=== PATIENT | male | born 1945 | race Caucasian/White ===

== ENCOUNTER 2019-01-21 15:13 | Inpatient (IN) | payer MEDICARE, BC ==
[2019-01-21] MEDS ORDERED: SODIUM CHLORIDE 0.9% 1,000 ML IV STA (15:41)
[2019-01-21] MEDS ORDERED: PANTOPRAZOLE 40 MG/10 ML VIAL IVP STA (15:41)
--- NOTE | 2019-01-21 15:58 | ED ---
General Adult HPI - General Chief complaint: Recheck/Abnormal Lab/Rx Stated complaint: Abn labs Time Seen by Provider: 01/21/19 15:19 Source: patient, RN notes reviewed, old records reviewed (Review of lab reports from primary care physician including hemoglobin 6.5, BUN 43, creatinine approximately 1.4.) Mode of arrival: ambulatory Limitations: no limitations - History of Present Illness Initial comments: Patient is a pleasant 73-year-old male presenting to the emergency department with concerns for abnormal blood work. Blood work done yesterday through primary care physician. Patient states over the past couple of months he has been more fatigued than normal. Patient has been more fatigued especially with exertion. Patient states overall symptoms are not severe however they were enough to bring to the doctor. Patient states he is also urinating somewhat more frequently, especially at nighttime. No shortness of breath. No sweating area of weakness. No abdominal pain. No hematochezia or melena. No other areas of bleeding notified. No history of similar symptoms previously. - Related Data Allergies Allergy/AdvReac Type Severity Reaction Status Date / Time No Known Allergies Allergy Verified 01/21/19 15:18 Review of Systems ROS Statement: Those systems with pertinent positive or pertinent negative responses have been documented in the HPI. ROS Other: All systems not noted in ROS Statement are negative. 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 History of Any Multi-Drug Resistant Organisms: None Reported Past Surgical History: Orthopedic Surgery Additional Past Surgical History / Comment(s): tumor removal on left side of neck Past Psychological History: No Psychological Hx Reported Smoking Status: Former smoker Past Alcohol Use History: Occasional Past Drug Use History: None Reported General Exam Limitations: no limitations General appearance: alert, in no apparent distress Head exam: Present: normocephalic Eye exam: Present: normal appearance, PERRL ENT exam: Present: normal oropharynx Neck exam: Present: normal inspection Respiratory exam: Present: normal lung sounds bilaterally Cardiovascular Exam: Present: regular rate, normal rhythm GI/Abdominal exam: Present: soft. Absent: tenderness Rectal exam: Present: normal inspection. Absent: bloody stool Extremities exam: Present: normal inspection Neurological exam: Present: alert Psychiatric exam: Present: normal affect, normal mood Skin exam: Present: normal color Course Vital Signs 01/21/19 01/21/19 01/21/19 15:15 15:48 16:20 Temperature 98.6 F Pulse Rate 78 66 87 Respiratory 16 18 18 Rate Blood Pressure 125/76 125/77 145/87 O2 Sat by Pulse 96 96 98 Oximetry EKG Findings - EKG Comments: EKG Findings:: Sinus rhythm at 80. ID 174. QRS 94. QT 344. QTC 396. Normal axis. Normal QRS. No acute ST change. Occasional premature complexes. Sinus arrhythmia. Medical Decision Making - Medical Decision Making Patient reevaluated and resting comfortably in bed. Patient and family updated on results and plan. Case discussed with practitioner Cris, covering for Dr. Wagoner, who will admit for Dr. Meza. - Lab Data Result diagrams: 01/21/19 15:43 01/21/19 15:43 Lab Results 01/21/19 01/21/19 01/21/19 Range/Units 15:43 15:43 15:43 WBC 5.5 (3.8-10.6) k/uL RBC 3.78 L (4.30-5.90) m/uL Hgb 7.2 L (13.0-17.5) gm/dL Hct 24.8 L (39.0-53.0) % MCV 65.6 L (80.0-100.0) fL MCH 18.9 L (25.0-35.0) pg MCHC 28.9 L (31.0-37.0) g/dL RDW 17.1 H (11.5-15.5) % Plt Count 283 (150-450) k/uL Neutrophils % (Manual) 73 % Lymphocytes % (Manual) 23 % Monocytes % (Manual) 2 % Eosinophils % (Manual) 2 % Neutrophils # (Manual) 4.02 (1.3-7.7) k/uL Lymphocytes # (Manual) 1.27 (1.0-4.8) k/uL Monocytes # (Manual) 0.11 (0-1.0) k/uL Eosinophils # (Manual) 0.11 (0-0.7) k/uL Nucleated RBCs 0 (0-0) /100 WBC Manual Slide Review Performed Polychromasia Present Hypochromasia Marked Poikilocytosis Slight Poikilocytosis (manual Present Anisocytosis Slight Microcytosis Marked Target Cells Present Ovalocytes Present PT (9.0-12.0) sec INR (<1.2) APTT (22.0-30.0) sec Sodium 138 (137-145) mmol/L Potassium 4.0 (3.5-5.1) mmol/L Chloride 104 (98-107) mmol/L Carbon Dioxide 21 L (22-30) mmol/L Anion Gap 13 mmol/L BUN 42 H (9-20) mg/dL Creatinine 1.75 H (0.66-1.25) mg/dL Est GFR (CKD-EPI)AfAm 44 (>60 ml/min/1.73 sqM) Est GFR (CKD-EPI)NonAf 38 (>60 ml/min/1.73 sqM) Glucose 96 (74-99) mg/dL Calcium 9.7 (8.4-10.2) mg/dL Total Bilirubin 0.7 (0.2-1.3) mg/dL AST 33 (17-59) U/L ALT 24 (21-72) U/L Alkaline Phosphatase 38 (38-126) U/L Creatine Kinase 55 (55-170) U/L Troponin I (0.000-0.034) ng/mL Total Protein 7.3 (6.3-8.2) g/dL Albumin 4.5 (3.5-5.0) g/dL Stool Occult Blood Negative (Negative) Blood Type Blood Type Confirm Blood Type Recheck Bld Type Recheck Status Antibody Screen Spec Expiration Date 01/21/19 01/21/19 01/21/19 Range/Units 15:43 15:43 15:43 WBC (3.8-10.6) k/uL RBC (4.30-5.90) m/uL Hgb (13.0-17.5) gm/dL Hct (39.0-53.0) % MCV (80.0-100.0) fL MCH (25.0-35.0) pg MCHC (31.0-37.0) g/dL RDW (11.5-15.5) % Plt Count (150-450) k/uL Neutrophils % (Manual) % Lymphocytes % (Manual) % Monocytes % (Manual) % Eosinophils % (Manual) % Neutrophils # (Manual) (1.3-7.7) k/uL Lymphocytes # (Manual) (1.0-4.8) k/uL Monocytes # (Manual) (0-1.0) k/uL Eosinophils # (Manual) (0-0.7) k/uL Nucleated RBCs (0-0) /100 WBC Manual Slide Review Polychromasia Hypochromasia Poikilocytosis Poikilocytosis (manual Anisocytosis Microcytosis Target Cells Ovalocytes PT 9.9 (9.0-12.0) sec INR 0.9 (<1.2) APTT 22.4 (22.0-30.0) sec Sodium (137-145) mmol/L Potassium (3.5-5.1) mmol/L Chloride (98-107) mmol/L Carbon Dioxide (22-30) mmol/L Anion Gap mmol/L BUN (9-20) mg/dL Creatinine (0.66-1.25) mg/dL Est GFR (CKD-EPI)AfAm (>60 ml/min/1.73 sqM) Est GFR (CKD-EPI)NonAf (>60 ml/min/1.73 sqM) Glucose (74-99) mg/dL Calcium (8.4-10.2) mg/dL Total Bilirubin (0.2-1.3) mg/dL AST (17-59) U/L ALT (21-72) U/L Alkaline Phosphatase (38-126) U/L Creatine Kinase (55-170) U/L Troponin I <0.012 (0.000-0.034) ng/mL Total Protein (6.3-8.2) g/dL Albumin (3.5-5.0) g/dL Stool Occult Blood (Negative) Blood Type A Positive Blood Type Confirm Blood Type Recheck No Previous Record Bld Type Recheck Status CABO Indicated Antibody Screen NEGATIVE Spec Expiration Date 01/24/2019 - 9176 01/21/19 Range/Units 16:05 WBC (3.8-10.6) k/uL RBC (4.30-5.90) m/uL Hgb (13.0-17.5) gm/dL Hct (39.0-53.0) % MCV (80.0-100.0) fL MCH (25.0-35.0) pg MCHC (31.0-37.0) g/dL RDW (11.5-15.5) % Plt Count (150-450) k/uL Neutrophils % (Manual) % Lymphocytes % (Manual) % Monocytes % (Manual) % Eosinophils % (Manual) % Neutrophils # (Manual) (1.3-7.7) k/uL Lymphocytes # (Manual) (1.0-4.8) k/uL Monocytes # (Manual) (0-1.0) k/uL Eosinophils # (Manual) (0-0.7) k/uL Nucleated RBCs (0-0) /100 WBC Manual Slide Review Polychromasia Hypochromasia Poikilocytosis Poikilocytosis (manual Anisocytosis Microcytosis Target Cells Ovalocytes PT (9.0-12.0) sec INR (<1.2) APTT (22.0-30.0) sec Sodium (137-145) mmol/L Potassium (3.5-5.1) mmol/L Chloride (98-107) mmol/L Carbon Dioxide (22-30) mmol/L Anion Gap mmol/L BUN (9-20) mg/dL Creatinine (0.66-1.25) mg/dL Est GFR (CKD-EPI)AfAm (>60 ml/min/1.73 sqM) Est GFR (CKD-EPI)NonAf (>60 ml/min/1.73 sqM) Glucose (74-99) mg/dL Calcium (8.4-10.2) mg/dL Total Bilirubin (0.2-1.3) mg/dL AST (17-59) U/L ALT (21-72) U/L Alkaline Phosphatase (38-126) U/L Creatine Kinase (55-170) U/L Troponin I (0.000-0.034) ng/mL Total Protein (6.3-8.2) g/dL Albumin (3.5-5.0) g/dL Stool Occult Blood (Negative) Blood Type Blood Type Confirm A Positive Blood Type Recheck Bld Type Recheck Status Antibody Screen Spec Expiration Date Disposition Clinical Impression: Anemia, Renal insufficiency Disposition: ADMITTED IP TO THIS HOSP Is patient prescribed a controlled substance at d/c from ED?: No Referrals: Ramos Meza III, MD [Primary Care Provider] - 1-2 days Decision Time: 17:09
[2019-01-21 16:02] LABS: Anisocytosis Slight; HCT 24.8 % (39.0-53.0); HGB 7.2 gm/dL (13.0-17.5); Hypochromasia Marked; MCH 18.9 pg (25.0-35.0); MCHC 28.9 g/dL (31.0-37.0); MCV 65.6 fL (80.0-100.0); Mean Platelet Volume 7.9; Microcytosis Marked; Platelet Count 283 k/uL (150-450); Poikilocytosis Slight; RBC 3.78 m/uL (4.30-5.90); RDW 17.1 % (11.5-15.5); WBC 5.5 k/uL (3.8-10.6)
[2019-01-21 16:12] LABS: Albumin 4.5 g/dL (3.5-5.0); Calcium 9.7 mg/dL (8.4-10.2); Total Bilirubin 0.7 mg/dL (0.2-1.3); Total Protein 7.3 g/dL (6.3-8.2)
[2019-01-21 16:14] LABS: INR 0.9 (<1.2); Partial Thromboplastin Time 22.4 sec (22.0-30.0); Prothrombin Time 9.9 sec (9.0-12.0)
--- NOTE | 2019-01-21 16:22 | XR ---
EXAMINATION TYPE: XR chest 2V DATE OF EXAM: 01/21/2019 COMPARISON: NONE HISTORY: Fatigue and weakness. TECHNIQUE: Frontal and lateral views of the chest are obtained. FINDINGS: There is chronic parenchymal change without suspicious focal air space opacity, pleural ef fusion, or pneumothorax seen. The cardiac silhouette size is upper limits of normal with atheroscler otic and ectatic thoracic aorta. Retrocardiac opacity consistent with moderate size hiatal hernia Th e osseous structures are demineralized. IMPRESSION: Chronic changes without acute pulmonary process.
[2019-01-21 16:53] LABS: Eosinophils # (M) 0.11 k/uL (0-0.7); Lymphocytes # (M) 1.27 k/uL (1.0-4.8); Monocytes # (M) 0.11 k/uL (0-1.0); Neutrophils # (M) 4.02 k/uL (1.3-7.7); Neutrophils % (M) 73 %; Nucleated Red Blood Cells 0 /100 WBC (0-0); Total Cells Counted 100
[2019-01-21 16:54] LABS: Ovalocytes Present; Poikilocytosis (M) Present; Polychromasia Present; Target Cells Present
[2019-01-21] MEDS ORDERED: NALOXONE 0.4 MG/ML 1 ML VIAL IV PRN (17:09)
[2019-01-22] MEDS: SODIUM CHLORIDE 0.9% 1,000 ML IV SCH ×2 (00:07→18:01)
[2019-01-22] MEDS ORDERED: ACETAMINOPHEN TAB 325 MG TAB PO PRN (07:19)
[2019-01-22 08:00] LABS: Calcium 9.2 mg/dL (8.4-10.2); Total Bilirubin 0.8 mg/dL (0.2-1.3)
[2019-01-22 08:02] LABS: Anisocytosis Slight; Hypochromasia Marked; MCH 18.9 pg (25.0-35.0); MCHC 27.7 g/dL (31.0-37.0); MCV 68.2 fL (80.0-100.0); Mean Platelet Volume 7.5; Microcytosis Marked; Platelet Count 219 k/uL (150-450); Poikilocytosis Slight; RBC 3.37 m/uL (4.30-5.90); RDW 16.8 % (11.5-15.5); WBC 4.4 k/uL (3.8-10.6)
[2019-01-22 08:10] LABS: HGB 6.4 gm/dL (13.0-17.5)
[2019-01-22 08:54] LABS: Eosinophils # (M) 0.13 k/uL (0-0.7); Lymphocytes # (M) 1.01 k/uL (1.0-4.8); Monocytes # (M) 0.18 k/uL (0-1.0); Neutrophils # (M) 3.08 k/uL (1.3-7.7); Neutrophils % (M) 70 %; Nucleated Red Blood Cells 0 /100 WBC (0-0); Total Cells Counted 100
[2019-01-22 08:55] LABS: Ovalocytes Present; RBC Fragments Present
[2019-01-22] MEDS ORDERED: HYDROCHLOROTHIAZIDE 25 MG TAB PO SCH (09:00)
[2019-01-22] MEDS ORDERED: LOSARTAN 50 MG TAB PO SCH (09:00)
[2019-01-22] MEDS: ASPIRIN 81 MG PO SCH (09:10)
[2019-01-22] MEDS: METOPROLOL SUCCINATE (ER) 25 MG TAB.ER.24H PO SCH (09:10)
[2019-01-22] MEDS: amLODIPine 5 MG TAB PO SCH (09:10)
[2019-01-22 09:23] LABS: Albumin 3.6 g/dL (3.5-5.0); Potassium 4.5 mmol/L (3.5-5.1)
[2019-01-22] MEDS: PANTOPRAZOLE 40 MG/10 ML VIAL IV SCH (09:31)
--- NOTE | 2019-01-22 10:03 | P.NPCON ---
History of Present Illness - Reason for Consult acute renal failure - History of Present Illness Reason for consultation: Acute kidney injury History of present illness: Patient is a 73-year-old male seen in consultation for acute kidney injury. Creatinine was 1.75 on admission and is down to 1.33 today. Patient presented to the hospital due to generalized weakness. Patient states he's been getting t ired with minimal activity. He denies chest pain or shortness of breath. He does admit to good urine output. Denies any hematuria or dysuria. Denies personal or family history of renal disease. Patient's hemoglobin was 7.2 on admission and is 6.4 today. He denies any melena or hematochezia. He does admit to taking Aleve once daily for the last 1 year. Hemodynamically stable. He was taking losartan as well as hydrochlorothiazide at home which are currently held. Patient received IV fluids overnight. Scheduled to receive platelet transition today. Vital signs are stable. General: The patient appeared well nourished and normally developed. HEENT: Head exam is unremarkable. Neck is without jugular venous distension. LUNGS: Lungs are clear to auscultation and percussion. Breath sounds decreased. HEART: Rate and Rhythm are regular. First and second heart sounds normal. No murmurs, rubs or gallops. ABDOMEN: Abdominal exam reveals normal bowel sounds. Non-tender and non-distended. No evidence of peritonitis. EXTREMITITES: No clubbing, cyanosis, or edema. 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, leaky valvue History of Any Multi-Drug Resistant Organisms: None Reported Past Surgical History: Orthopedic Surgery Additional Past Surgical History / Comment(s): tumor removal on left side of neck, wrist sx, Past Psychological History: No Psychological Hx Reported Smoking Status: Former smoker Past Alcohol Use History: Occasional Past Drug Use History: None Reported - Past Family History Father Family Medical History: Myocardial Infarction ([place]) Additional Family Medical History / Comment(s): at 54 Medications and Allergies Home Medications Medication Instructions Recorded Confirmed Type Acetaminophen [Tylenol Arthritis] 650 mg PO Q6H PRN 01/21/19 01/21/19 History Aspirin EC [Ecotrin Low Dose] 81 mg PO DAILY 01/21/19 01/21/19 History Fish Oil/Dha/Epa [Fish Oil 1,200 1 cap PO DAILY 01/21/19 01/21/19 History mg Fish Oil] Flaxseed Oil 1200mg 1 cap PO DAILY 01/21/19 01/21/19 History Hydrochlorothiazide 25 mg PO DAILY 01/21/19 01/21/19 History Losartan Potassium 100 mg PO DAILY 01/21/19 01/21/19 History Metoprolol Succinate [Toprol XL] 25 mg PO DAILY 01/21/19 01/21/19 History Multivitamins, Thera [Multivitamin 1 tab PO DAILY 01/21/19 01/21/19 History (formulary)] amLODIPine [Norvasc] 5 mg PO DAILY 01/21/19 01/21/19 History Allergies Allergy/AdvReac Type Severity Reaction Status Date / Time No Known Allergies Allergy Verified 01/21/19 17:14 Physical Exam Vitals: Vital Signs Temp Pulse Pulse Resp BP BP Pulse Ox 01/22/19 07:20 98.3 F 70 17 122/78 97 01/22/19 05:37 98.0 F 70 16 99/62 98 01/21/19 21:09 97.7 F 84 16 124/66 97 01/21/19 18:18 98.2 F 122 H 20 132/82 94 L 01/21/19 17:51 98.3 F 73 18 132/89 97 01/21/19 16:20 87 18 145/87 98 01/21/19 15:48 66 18 125/77 96 01/21/19 15:15 98.6 F 78 16 125/76 96 Intake and Output 01/21/19 01/22/19 01/22/19 22:59 06:59 14:59 Intake Total 580 Output Total 126 Balance 580 -126 Intake: Intake, IV Titration 580 Amount Sodium Chloride 0.9% 1, 500 000 ml @ 100 mls/hr IV . Q10H [facility] Rx#:[id number] Sodium Chloride 0.9% 1, 80 000 ml @ 20 mls/hr IV . Q24H [facility] Rx#:[id number] Output: Post Void Residual 126 Other: Voiding Method Toilet Toilet Toilet # Voids 1 1 Weight 72.575 kg Results - Lab Results Most recent lab results Calcium 9.2 mg/dL (8.4-10.2) 01/22/19 07:24 01/22/19 07:24 01/22/19 07:24 Assessment and Plan Plan: Assessment: 1. Acute kidney injury mostly prerenal secondary to acute blood loss anemia and further worsened with the use of hydrochlorothiazide and losartan. Creatinine was 1.75 on admission and is 1.33 today. No evidence of urinary retention. 2. Acute blood loss anemia. Hemoglobin 6.4 today. 3. Benign hypertension. Controlled. Plan: I will decrease the rate of normal saline to 50 mL an hour. Transfuse 1 unit of packed red cells today. Avoid nephrotoxins, arabella NSAIDs in setting of GIB. Continue to hold hydrochlorothiazide and losartan. GI recommendations pending. Follow-up iron studies. Repeat electrolytes in the morning. Thank you for the consultation. I will continue to follow the patient with you during his hospital stay.
[2019-01-22 11:15] LABS: Appearance,Urine Clear (Clear); Bilirubin,Urine Negative (Negative); Blood,Urine Negative (Negative); Color,Urine Light Yellow; Glucose,Urine (UA) Negative (Negative); Ketones,Urine Negative (Negative); Leukocyte Esterase,Urine Negative (Negative); Nitrite,Urine Negative (Negative); Protein,Urine Negative (Negative); Specific Gravity,Urine 1.014 (1.001-1.035); Urobilinogen,Urine <2.0 mg/dL (<2.0)
--- NOTE | 2019-01-22 12:33 | P.HPIM ---
History of Present Illness This is a pleasant 73 years old male with past medical history of lymphoma of the left ear, hypertension who presents because of her low hemoglobin sent by his primary care physician to the emergency room as his hemoglobin was 6.5 with BUN 43 and creatinine 1.4 as per documentation. Patient went to see his PCP Dr. Burroughs because was feeling fatigue with decreased libido and generalized weakness for 2-3 months and eventually his competent to see his PCP Y found to be severely anemic with high creatinine and he was referred to the hospital. 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 He denies chest pain or dyspnea. No abdominal pain. No nausea vomiting. No change in urine or bowel habits. No fever. Vitas looks stable, with low normal blood pressure irrigated this morning at 99/62. Labs showing hemoglobin of 7.2, and creatinine of 1.7. EKG showing sinus rhythm at 80 BPM with no significant ST-T changes, sinus arrhythmia and PVCs with QTC of 396. Chest x-ray: No acute process, Hiatal hernia. On admission patient was started on a Protonix and normal saline at 100 mL per hour. GI and hematology team were consulted from emergency room. Review of Systems CONSTITUTIONAL: No fever, no malaise, no fatigue. HEENT: No recent visual problems or hearing problems. Denied any sore throat. CARDIOVASCULAR: No orthopnea, PND, no palpitations, no syncope. PULMONARY: No shortness of breath, no cough, no hemoptysis. GASTROINTESTINAL: No diarrhea, no nausea, no vomiting, no abdominal pain. Nor moactive bowel sounds. NEUROLOGICAL: No headaches, no weakness, no numbness. HEMATOLOGICAL: Denies any bleeding or petechiae. GENITOURINARY: Denies any burning micturition, frequency, or urgency. MUSCULOSKELETAL/RHEUMATOLOGICAL: Denies any joint pain, swelling, or any muscle pain. ENDOCRINE: Denies any polyuria or polydipsia. 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, leaky valvue History of Any Multi-Drug Resistant Organisms: None Reported Past Surgical History: Orthopedic Surgery Additional Past Surgical History / Comment(s): tumor removal on left side of neck, wrist sx, Past Psychological History: No Psychological Hx Reported Smoking Status: Former smoker Past Alcohol Use History: Occasional Past Drug Use History: None Reported - Past Family History Father Family Medical History: Myocardial Infarction ([place]) Additional Family Medical History / Comment(s): at 54 Medications and Allergies Home Medications Medication Instructions Recorded Confirmed Type Acetaminophen [Tylenol Arthritis] 650 mg PO Q6H PRN 01/21/19 01/21/19 History Aspirin EC [Ecotrin Low Dose] 81 mg PO DAILY 01/21/19 01/21/19 History Fish Oil/Dha/Epa [Fish Oil 1,200 1 cap PO DAILY 01/21/19 01/21/19 History mg Fish Oil] Flaxseed Oil 1200mg 1 cap PO DAILY 01/21/19 01/21/19 History Hydrochlorothiazide 25 mg PO DAILY 01/21/19 01/21/19 History Losartan Potassium 100 mg PO DAILY 01/21/19 01/21/19 History Metoprolol Succinate [Toprol XL] 25 mg PO DAILY 01/21/19 01/21/19 History Multivitamins, Thera [Multivitamin 1 tab PO DAILY 01/21/19 01/21/19 History (formulary)] amLODIPine [Norvasc] 5 mg PO DAILY 01/21/19 01/21/19 History Allergies Allergy/AdvReac Type Severity Reaction Status Date / Time No Known Allergies Allergy Verified 01/21/19 17:14 Physical Exam Vitals: Vital Signs Temp Pulse Pulse Resp BP BP Pulse Ox 01/22/19 05:37 98.0 F 70 16 99/62 98 01/21/19 21:09 97.7 F 84 16 124/66 97 01/21/19 18:18 98.2 F 122 H 20 132/82 94 L 01/21/19 17:51 98.3 F 73 18 132/89 97 01/21/19 16:20 87 18 145/87 98 01/21/19 15:48 66 18 125/77 96 01/21/19 15:15 98.6 F 78 16 125/76 96 Intake and Output 01/21/19 01/22/19 01/22/19 22:59 06:59 14:59 Intake Total 580 Balance 580 Intake: Intake, IV Titration 580 Amount Sodium Chloride 0.9% 1, 500 000 ml @ 100 mls/hr IV . Q10H [facility] Rx#:[id number] Sodium Chloride 0.9% 1, 80 000 ml @ 20 mls/hr IV . Q24H [facility] Rx#:[id number] Other: Voiding Method Toilet Toilet # Voids 1 1 Weight 72.575 kg GENERAL: The patient is alert and oriented x3, not in any acute distress. Well developed, well nourished. HEENT: Pupils are round and equally reacting to light. EOMI. No scleral icterus. No conjunctival pallor. Normocephalic, atraumatic. No pharyngeal erythema. No thyromegaly. CARDIOVASCULAR: S1 and S2 present. No murmurs, rubs, or gallops. PULMONARY: Chest is clear to auscultation, no wheezing or crackles. ABDOMEN: Soft, nontender, nondistended, normoactive bowel sounds. No palpable organomegaly. MUSCULOSKELETAL: No joint swelling or deformity. EXTREMITIES: No cyanosis, clubbing, or pedal edema. NEUROLOGICAL: Gross neurological examination did not reveal any focal deficits. SKIN: No rashes. No petechiae Results CBC & Chem 7: 01/22/19 07:24 01/22/19 07:24 Labs: Abnormal Lab Results - Last 24 Hours (Table) 01/21/19 01/21/19 Range/Units 15:43 15:43 RBC 3.78 L (4.30-5.90) m/uL Hgb 7.2 L (13.0-17.5) gm/dL Hct 24.8 L (39.0-53.0) % MCV 65.6 L (80.0-100.0) fL MCH 18.9 L (25.0-35.0) pg MCHC 28.9 L (31.0-37.0) g/dL RDW 17.1 H (11.5-15.5) % Carbon Dioxide 21 L (22-30) mmol/L BUN 42 H (9-20) mg/dL Creatinine 1.75 H (0.66-1.25) mg/dL Thrombosis Risk Factor Assmnt - Choose All That Apply Any of the Below Risk Factors Present?: No Each Risk Factor Represents 2 Points: Age 61-74 years Thrombosis Risk Factor Assessment Total Risk Factor Score: 2 Thrombosis Risk Factor Assessment Level: Low Risk Assessment and Plan Assessment: Acute kidney injury, mostly secondary to prerenal acute anemia, suspicious for acute blood loss anemia Generalized weakness, fatigue and decreased libido, secondary to above Hiatal hernia Hypertension History of lymphoma in the left ear Plan: This is a pleasant 73 years old male who presents with anemia and Ana, although anemia workup including iron profile, B12/folate, occult blood in stool, and reticulocyte. Also we'll continue with normal saline and follow-up renal level. Check a bladder scan. Call nephrology consult. Continue with Protonix Labs and medication were reviewed.. Continue same treatment. Continue with symptomatic treatment. Resume home medication. Monitor lytes and vitals. DVT and GI prophylaxis. Further recommendations of the clinical course of the patient DVT prophylaxis: Subcutaneous heparin in view of GI bleed,mechanical GI Prophylaxis: Protonix PT/OT: Pending Prognosis is guarded
[2019-01-22 13:06] LABS: Reticulocyte % 1.9 % (0.5-2.0)
--- NOTE | 2019-01-22 16:36 | P.CONS ---
History of Present Illness - Reason for Consult Consult date: 01/22/19 anemia Requesting physician: Solomon Mims - Chief Complaint Abnormal lab - History of Present Illness Mr. Roa is a very pleasant male patient of Dr. Jonh Meza who was being seen for progressive fatigue over few months, this was associated with shortness of breath with exertion, muscle weakness with minor tasks. On routine lab work patient was found to have a hemoglobin of 6.4 and he was directed by PCP to ER for blood transfusion and to stabilize hemoglobin. Patient denies any past history of low blood counts/anemia, he denies any kidney disease (BUN 27 creatinine 1.33). His last colonoscopy was about 2-[address] Pettit, he has a history of some polyps, nothing malignant, never had an EGD, denies any gross bleeding, fevers, chills, night sweats, dysphagia, early satiety, unintentional wt. loss, lymph node swellings, abdominal pain, distention, acute changes indigestion, acute bowel or bladder habit changes, black or bloody stool, hemorrhoids, dysuria, hematuria. Has noted decreased libido, increased nocturia. 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 He had some radiation to the area, no other f/u or work up. 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 No other personal or family history of malignancy. He eats a well balanced diet and is active. He feels he is in good health Review of Systems 14 point review of systems is negative except as stated in HPI Past Medical History Past Medical History: Cancer Additional Past Medical History / Comment(s): lymphoma in left ear lobe, leaky valvue History of Any Multi-Drug Resistant Organisms: None Reported Past Surgical History: Orthopedic Surgery Additional Past Surgical History / Comment(s): tumor removal on left side of neck, wrist sx, Past Anesthesia/Blood Transfusion Reactions: No Reported Reaction Past Psychological History: No Psychological Hx Reported Smoking Status: Former smoker Past Alcohol Use History: Occasional Past Drug Use History: None Reported - Past Family History Father Family Medical History: Myocardial Infarction (OR) Additional Family Medical History / Comment(s): at 54 Medications and Allergies Home Medications Medication Instructions Recorded Confirmed Type Acetaminophen [Tylenol Arthritis] 650 mg PO Q6H PRN 01/21/19 01/21/19 History Aspirin EC [Ecotrin Low Dose] 81 mg PO DAILY 01/21/19 01/21/19 History Fish Oil/Dha/Epa [Fish Oil 1,200 1 cap PO DAILY 01/21/19 01/21/19 History mg Fish Oil] Flaxseed Oil 1200mg 1 cap PO DAILY 01/21/19 01/21/19 History Hydrochlorothiazide 25 mg PO DAILY 01/21/19 01/21/19 History Losartan Potassium 100 mg PO DAILY 01/21/19 01/21/19 History Metoprolol Succinate [Toprol XL] 25 mg PO DAILY 01/21/19 01/21/19 History Multivitamins, Thera [Multivitamin 1 tab PO DAILY 01/21/19 01/21/19 History (formulary)] amLODIPine [Norvasc] 5 mg PO DAILY 01/21/19 01/21/19 History Allergies Allergy/AdvReac Type Severity Reaction Status Date / Time No Known Allergies Allergy Verified 01/21/19 17:14 Physical Exam Vitals: Vital Signs Temp Pulse Pulse Resp BP BP Pulse Ox 01/22/19 15:01 97 F L 69 18 126/73 96 01/22/19 12:37 66 17 129/74 98 01/22/19 12:07 64 16 141/79 95 01/22/19 11:57 98.1 F 79 16 153/80 97 01/22/19 07:20 98.3 F 70 17 122/78 97 01/22/19 05:37 98.0 F 70 16 99/62 98 01/21/19 21:09 97.7 F 84 16 124/66 97 01/21/19 18:18 98.2 F 122 H 20 132/82 94 L 01/21/19 17:51 98.3 F 73 18 132/89 97 Intake and Output 01/22/19 01/22/19 01/22/19 06:59 14:59 22:59 Intake Total 580 400 310 Output Total 126 Balance 580 274 310 Intake: Intake, IV Titration 580 400 Amount Sodium Chloride 0.9% 1, 500 000 ml @ 100 mls/hr IV . Q10H STA Rx#:[id number] Sodium Chloride 0.9% 1, 80 400 000 ml @ 50 mls/hr IV . Q20H FIGUEROA Rx#:[id number] Blood Product 0 310 Rc Pheresis 2 As3 Unit 0 310 [id number] Output: Post Void Residual 126 Other: Voiding Method Toilet Toilet Toilet # Voids 1 1 - Constitutional General appearance: average body habitus, cooperative, no acute distress - EENT Eyes: anicteric sclerae, EOMI, dentition normal ENT: hearing grossly normal, normal oropharynx - Neck Scar on the left neck Neck: no lymphadenopathy - Respiratory Respiratory: bilateral: CTA - Cardiovascular Rhythm: regular Heart sounds: normal: S1, S2 Abnormal Heart Sounds: no systolic murmur, no diastolic murmur, no rub, no S3 Gallop, no S4 Gallop, no click, no other leg Peripheral Edema: bilateral: None - Gastrointestinal General gastrointestinal: no absent bowel sounds, no decreased bowel sounds, no distended, no hepatomegaly, no hyperactive bowel sounds, normal bowel sounds, no organomegaly, no rigid, no scaphoid, soft, no splenomegaly, no tenderness, no umbilical hernia, no ventral hernia - Integumentary Integumentary: normal, normal turgor - Neurologic Neurologic: CNII-XII intact - Musculoskeletal Musculoskeletal: strength equal bilaterally - Psychiatric Psychiatric: A&O x's 3, appropriate affect, intact judgment & insight Results CBC & Chem 7: 01/22/19 07:24 01/22/19 07:24 Labs: Abnormal Lab Results - Last 24 Hours (Table) 01/21/19 01/21/19 01/22/19 Range/Units 15:43 15:43 07:24 RBC 3.78 L 3.37 L (4.30-5.90) m/uL Hgb 7.2 L 6.4 L* (13.0-17.5) gm/dL Hct 24.8 L 23.0 L (39.0-53.0) % MCV 65.6 L 68.2 L (80.0-100.0) fL MCH 18.9 L 18.9 L (25.0-35.0) pg MCHC 28.9 L 27.7 L (31.0-37.0) g/dL RDW 17.1 H 16.8 H (11.5-15.5) % BUN (9-20) mg/dL Creatinine (0.66-1.25) mg/dL Alkaline Phosphatase (38-126) U/L Total Protein (6.3-8.2) g/dL Crossmatch See Detail 01/22/19 Range/Units 07:24 RBC (4.30-5.90) m/uL Hgb (13.0-17.5) gm/dL Hct (39.0-53.0) % MCV (80.0-100.0) fL MCH (25.0-35.0) pg MCHC (31.0-37.0) g/dL RDW (11.5-15.5) % BUN 27 H (9-20) mg/dL Creatinine 1.33 H (0.66-1.25) mg/dL Alkaline Phosphatase 31 L (38-126) U/L Total Protein 6.0 L (6.3-8.2) g/dL Crossmatch Chest x-ray: report reviewed Assessment and Plan (1) Microcytic hypochromic anemia Narrative/Plan: Iron deficiency workup ordered. Dr. Pettit will be consulted as this is new for the patient. She may recommend further workup in the outpatient setting. Recommendations to follow from Hematology Current Visit: Yes Status: Acute Priority: High Code(s): D50.9 - IRON DEFICIENCY ANEMIA, UNSPECIFIED SNOMED Code(s): 61018405 (2) Renal insufficiency Narrative/Plan: Nephrology has been consulted. Could be contributing and a small way to patient's anemia Current Visit: Yes Status: Acute Priority: High Code(s): N28.9 - DISORDER OF KIDNEY AND URETER, UNSPECIFIED SNOMED Code(s): 072840366 Plan: Remote history of a single lymph node lymphoma lt posterior ear. Nothing in H&P or labs is highly suspicious for this process but, I will review the case with Hem/Onc to see if any additional workup would be appropriate.
[2019-01-22 16:53] LABS: % Iron Saturation 2.05 (15.00-50.00); Ferritin 5.2 ng/mL (22.0-322.0); Folate, Serum 22.2 ng/mL
[2019-01-22] MEDS ORDERED: PEG 3350-NA SULF,BICARB,CL/KCL 4,000 ML BOTTLE PO ONE (17:00)
--- NOTE | 2019-01-22 22:22 | CONS ---
CONSULTATION DATE OF DICTATION: 01/22/2019 REASON FOR CONSULTATION: Severe symptomatic microcytic, hypochromic anemia. HISTORY OF PRESENT ILLNESS: The patient is a 73-year-old pleasant white male who has been feeling fatigued and weak for the last two months' duration. He went to see Dr. Meza on an outpatient basis, had routine labs done, and hemoglobin was low at 7.3. He was called and was advised to go to the emergency room, and the patient was admitted yesterday night. He denies any abdominal pain. No nausea or vomiting. No rectal bleeding. No melena. He never had these symptoms in the past. His last colonoscopy was about three years ago by Dr. Trevino, which was within normal limits. PAST MEDICAL HISTORY: Significant for hypertension and lymphoma of the left earlobe diagnosed in 2004. PAST SURGICAL HISTORY: Unremarkable. MEDICATIONS AT HOME: 1. Aspirin. 2. Losartan. 3. Hydrochlorothiazide. 4. Amlodipine. 5. Toprol. 6. Multivitamin. ALLERGIES: NO KNOWN DRUG ALLERGIES. SOCIAL HISTORY: No smoking or alcohol use. FAMILY HISTORY: Unremarkable. REVIEW OF SYSTEMS: CARDIOPULMONARY: No chest pain or shortness of breath. GENITOURINARY: No dysuria or hematuria. MUSCULOSKELETAL: Unremarkable. SKIN: Unremarkable. ENDOCRINE: Unremarkable. PSYCHIATRIC: Unremarkable. NEUROLOGICAL: Unremarkable. ENT/VISION: Unremarkable. CONSTITUTIONAL: No recent weight loss. No fever, chills, night sweats. PHYSICAL EXAMINATION: Blood pressure is 126/73, pulse rate 69, temperature 97. HEENT: Examination unremarkable. Conjunctivae are pink, sclerae anicteric. Oral cavity, no lesions. NECK: No JVD or lymph node enlargement. CHEST: Clear to auscultation. HEART: Regular rate and rhythm. ABDOMEN: Soft. Bowel sounds are positive. No organomegaly. EXTREMITIES: No pedal edema. SKIN: No rashes. NEUROLOGIC: He is alert and oriented x3. No focal deficits. LABS: WBC 5.5, hemoglobin 7.2. It is down to 6.4 today. MCV is 65. Platelets are normal. Basic metabolic panel is within normal limits. BUN is 42, creatinine 1.75. ALT, AST, T-bilirubin, and alkaline phosphatase are normal. Stool occult blood was negative. IMPRESSION: 1. Severe microcytic, hypochromic anemia consistent with iron deficiency anemia, most likely related to occult gastrointestinal blood loss. Clinically the patient does not have any gastrointestinal symptoms. Last colonoscopy three years ago by Dr. Trevino was within normal limits. The patient has been taking NSAIDS on a regular basis, Advil one tablet daily for the last one year for degenerative joint disease. Most likely we are dealing with peptic ulcer disease, but other etiologies cannot be excluded. The patient is hemodynamically stable and does not have any active ongoing bleeding. 2. Essential hypertension, which is well controlled. RECOMMENDATIONS: 1. Will give him one unit of PRBC transfusion. 2. Proceed with EGD and colonoscopy tomorrow. Discussed with the patient risks, benefits, and complications of the procedure and he is agreeable to it. Thank you for this consultation. MMODL / IJN: [id number] /
[2019-01-22] MEDS ORDERED: LIDOCAINE 1% 20 ML VIAL (10MG/ML) FOR IV START INTRADERMA PRN (22:51)
[2019-01-23] MEDS: LACTATED RINGERS 1,000 ML IV SCH ×2 (00:58→22:11)
[2019-01-23 09:03] LABS: Anisocytosis Slight; Basophils # (A) 0.1 k/uL (0-0.2); Basophils % (A) 1 %; Eosinophils # (A) 0.2 k/uL (0-0.7); Eosinophils % (A) 5 %; HGB 7.7 gm/dL (13.0-17.5); Hypochromasia Marked; Lymphocytes # (A) 0.9 k/uL (1.0-4.8); Lymphocytes % (A) 22 %; MCH 19.5 pg (25.0-35.0); MCHC 28.5 g/dL (31.0-37.0); MCV 68.5 fL (80.0-100.0); Mean Platelet Volume 6.7; Microcytosis Marked; Monocytes # (A) 0.4 k/uL (0-1.0); Monocytes % (A) 9 %; Neutrophils # (A) 2.5 k/uL (1.3-7.7); Neutrophils % (A) 59 %; Platelet Count 227 k/uL (150-450); Poikilocytosis Moderate; RBC 3.94 m/uL (4.30-5.90); RDW 19.1 % (11.5-15.5); WBC 4.3 k/uL (3.8-10.6)
[2019-01-23] MEDS: METOPROLOL SUCCINATE (ER) 25 MG TAB.ER.24H PO SCH (09:04)
--- NOTE | 2019-01-23 09:17 | P.PN ---
Subjective This is a pleasant 73 years old male with past medical history of lymphoma of the left ear, hypertension who presents because of her low hemoglobin sent by his primary care physician to the emergency room as his hemoglobin was 6.5 with BUN 43 and creatinine 1.4 as per documentation. Patient went to see his PCP Dr. Burroughs because was feeling fatigue with decreased libido and generalized weakness for 2-3 months and eventually his competent to see his PCP Y found to be severely anemic with high creatinine and he was referred to the hospital. 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 He denies chest pain or dyspnea. No abdominal pain. No nausea vomiting. No change in urine or bowel habits. No fever. Vitas looks stable, with low normal blood pressure irrigated this morning at 99/62. Labs showing hemoglobin of 7.2, and creatinine of 1.7. EKG showing sinus rhythm at 80 BPM with no significant ST-T changes, sinus arrhythmia and PVCs with QTC of 396. Chest x-ray: No acute process, Hiatal hernia. On admission patient was started on a Protonix and normal saline at 100 mL per hour. GI and hematology team were consulted from emergency room. 01/23/2019 Patient feels better with weakness is improving. Vitas looks stable. His hemoglobin went up to 7.7 post blood transfusion. Risks of CBC is unremarkable. Iron study showing anemia of chronic disease, B12 is low-normal under going to replace it, folate 22.2. Patient is planned for DVT/colonoscopy today. Review of Systems CONSTITUTIONAL: No fever, no malaise, no fatigue. HEENT: No recent visual problems or hearing problems. Denied any sore throat. CARDIOVASCULAR: No orthopnea, PND, no palpitations, no syncope. PULMONARY: No shortness of breath, no cough, no hemoptysis. GASTROINTESTINAL: No diarrhea, no nausea, no vomiting, no abdominal pain. Normoactive bowel sounds. NEUROLOGICAL: No headaches, no weakness, no numbness. HEMATOLOGICAL: Denies any bleeding or petechiae. GENITOURINARY: Denies any burning micturition, frequency, or urgency. MUSCULOSKELETAL/RHEUMATOLOGICAL: Denies any joint pain, swelling, or any muscle pain. ENDOCRINE: Denies any polyuria or polydipsia. Active Medications Generic Name Dose Route Start Last Admin Trade Name Freq PRN Reason Stop Dose Admin Acetaminophen 650 mg 01/22/19 07:19 Tylenol Tab PO Q6H PRN Pain Amlodipine Besylate 5 mg 01/22/19 09:00 01/22/19 09:10 Norvasc PO 5 mg DAILY FIGUEROA Administration Aspirin 81 mg 01/22/19 09:00 01/22/19 09:10 Aspirin PO 81 mg DAILY FIGUEROA Administration Cyanocobalamin 500 mcg 01/23/19 09:15 Vitamin B-12 PO DAILY FIGUEROA Sodium Chloride 1,000 mls @ 50 mls/hr 01/21/19 17:15 01/22/19 18:01 Saline 0.9% IV 50 mls/hr .Q20H FIGUEROA Administration Lactated Ringer's 1,000 mls @ 20 mls/hr 01/22/19 23:00 01/23/19 00:58 Lactated Ringers IV 20 mls/hr .Q24H FIGUEROA Administration Lidocaine HCl 0.1 ml 01/22/19 22:51 .Xylocaine 1% Inj (10mg/Ml) For Iv Start INTRADERMA PER PROTOCOL PRN IV Start Metoprolol Succinate 25 mg 01/22/19 09:00 01/23/19 09:04 Toprol Xl PO 25 mg DAILY FIGUEORA Administration Naloxone HCl 0.2 mg 01/21/19 17:09 Narcan IV Q2M PRN Opioid Reversal Pantoprazole Sodium 40 mg 01/22/19 09:00 01/22/19 09:31 Protonix IV 40 mg DAILY FIGUEROA Administration Objective - Vital Signs Vital signs: Vital Signs Temp 98.3 F 01/23/19 04:35 Pulse 74 01/23/19 04:35 Resp 18 01/23/19 04:35 BP 92/55 01/23/19 04:35 Pulse Ox 95 01/23/19 04:35 Intake & Output 01/22/19 01/23/19 01/23/19 18:59 06:59 18:59 Intake Total 710 60 Output Total 126 Balance 584 60 Intake: Intake, IV Titration 400 60 Amount Lactated Ringers 1,000 ml 60 @ 20 mls/hr IV .Q24H FIGUEROA Rx#:[id number] Sodium Chloride 0.9% 1, 400 000 ml @ 50 mls/hr IV . Q20H FIGUEROA Rx#:[id number] Blood Product 310 Rc Pheresis 2 As3 Unit 310 [id number] Output: Post Void Residual 126 Other: Voiding Method Toilet Toilet # Voids 1 2 # Bowel Movements 5 - Exam GENERAL: The patient is alert and oriented x3, not in any acute distress. Well developed, well nourished. HEENT: Pupils are round and equally reacting to light. EOMI. No scleral icterus. No conjunctival pallor. Normocephalic, atraumatic. No pharyngeal erythema. No thyromegaly. CARDIOVASCULAR: S1 and S2 present. No murmurs, rubs, or gallops. PULMONARY: Chest is clear to auscultation, no wheezing or crackles. ABDOMEN: Soft, nontender, nondistended, normoactive bowel sounds. No palpable organomegaly. MUSCULOSKELETAL: No joint swelling or deformity. EXTREMITIES: No cyanosis, clubbing, or pedal edema. NEUROLOGICAL: Gross neurological examination did not reveal any focal deficits. SKIN: No rashes. no petechiae. - Labs CBC & Chem 7: 01/23/19 08:21 01/22/19 07:24 Labs: Abnormal Lab Results - Last 24 Hours (Table) 01/21/19 01/22/19 01/22/19 Range/Units 15:43 07:24 07:24 RBC (4.30-5.90) m/uL Hgb (13.0-17.5) gm/dL Hct (39.0-53.0) % MCV (80.0-100.0) fL MCH (25.0-35.0) pg MCHC (31.0-37.0) g/dL RDW (11.5-15.5) % Lymphocytes # (1.0-4.8) k/uL Iron 9 L (65-175) ug/dL % Saturation 2.05 L (15.00-50.00) Ferritin 5.2 L (22.0-322.0) ng/mL Total Protein 6.0 L (6.3-8.2) g/dL Crossmatch See Detail 01/23/19 Range/Units 08:21 RBC 3.94 L (4.30-5.90) m/uL Hgb 7.7 L (13.0-17.5) gm/dL Hct 27.0 L (39.0-53.0) % MCV 68.5 L (80.0-100.0) fL MCH 19.5 L (25.0-35.0) pg MCHC 28.5 L (31.0-37.0) g/dL RDW 19.1 H (11.5-15.5) % Lymphocytes # 0.9 L (1.0-4.8) k/uL Iron (65-175) ug/dL % Saturation (15.00-50.00) Ferritin (22.0-322.0) ng/mL Total Protein (6.3-8.2) g/dL Crossmatch Assessment and Plan Assessment: Acute kidney injury, mostly secondary to prerenal acute anemia, suspicious for acute blood loss anemia Generalized weakness, fatigue and decreased libido, secondary to above Hiatal hernia Hypertension History of lymphoma in the left ear Plan: This is a pleasant 73 years old male who presents with anemia and Ana, patient is going for EGD/colonoscopy today. Continue with Protonix replaced B12 Labs and medication were reviewed.. Continue same treatment. Continue with symptomatic treatment. Resume home medication. Monitor lytes and vitals. DVT and GI prophylaxis. Further recommendations of the clinical course of the patient DVT prophylaxis: Subcutaneous heparin in view of GI bleed,mechanical GI Prophylaxis: Protonix
[2019-01-23 09:31] LABS: Calcium 9.3 mg/dL (8.4-10.2); Magnesium 1.9 mg/dL (1.6-2.3); Potassium 4.3 mmol/L (3.5-5.1)
[2019-01-23] MEDS: PANTOPRAZOLE 40 MG/10 ML VIAL IV SCH (09:43)
--- NOTE | 2019-01-23 10:20 | P.PN ---
Subjective Patient is seen in follow-up for acute kidney injury. Renal function is improving. Creatinine 1.2 today. No active bleeding. Scheduled for EGD and colonoscopy today. Urine output has been good. Vital signs are stable. General: The patient appeared well nourished and normally developed. HEENT: Head exam is unremarkable. Neck is without jugular venous distension. LUNGS: Lungs are clear to auscultation and percussion. Breath sounds decreased. HEART: Rate and Rhythm are regular. First and second heart sounds normal. No murmurs, rubs or gallops. ABDOMEN: Abdominal exam reveals normal bowel sounds. Non-tender and non- distended. No evidence of peritonitis. EXTREMITITES: No clubbing, cyanosis, or edema. Objective - Vital Signs Vital signs: Vital Signs Temp 98.3 F 01/23/19 04:35 Pulse 74 01/23/19 04:35 Resp 18 01/23/19 04:35 BP 92/55 01/23/19 04:35 Pulse Ox 95 01/23/19 04:35 Intake & Output 01/22/19 01/23/19 01/23/19 18:59 06:59 18:59 Intake Total 710 60 Output Total 126 Balance 584 60 Intake: Intake, IV Titration 400 60 Amount Lactated Ringers 1,000 ml 60 @ 20 mls/hr IV .Q24H FIGUEROA Rx#:[id number] Sodium Chloride 0.9% 1, 400 000 ml @ 50 mls/hr IV . Q20H FIGUEROA Rx#:[id number] Blood Product 310 Rc Pheresis 2 As3 Unit 310 [id number] Output: Post Void Residual 126 Other: Voiding Method Toilet Toilet Toilet # Voids 1 2 # Bowel Movements 5 - Labs CBC & Chem 7: 01/23/19 08:21 01/23/19 08:21 Labs: Abnormal Lab Results - Last 24 Hours (Table) 01/21/19 01/22/19 01/23/19 Range/Units 15:43 07:24 08:21 RBC 3.94 L (4.30-5.90) m/uL Hgb 7.7 L (13.0-17.5) gm/dL Hct 27.0 L (39.0-53.0) % MCV 68.5 L (80.0-100.0) fL MCH 19.5 L (25.0-35.0) pg MCHC 28.5 L (31.0-37.0) g/dL RDW 19.1 H (11.5-15.5) % Lymphocytes # 0.9 L (1.0-4.8) k/uL Iron 9 L (65-175) ug/dL % Saturation 2.05 L (15.00-50.00) Ferritin 5.2 L (22.0-322.0) ng/mL Crossmatch See Detail Assessment and Plan Plan: Assessment: 1. Acute kidney injury mostly prerenal secondary to acute blood loss anemia and further worsened with the use of hydrochlorothiazide and losartan. Creatinine was 1.75 on admission and is 1.22 today. No evidence of urinary retention. UA is benign. 2. Acute blood loss anemia. Status post blood transfusion. Scheduled for EGD and colonoscopy today. Severe iron deficiency noted. 3. Benign hypertension. Blood pressure on the lower side this morning. Plan: Maintain normal saline at 50 mL an hour. Avoid nephrotoxins, arabella NSAIDs in setting of GIB. Continue to hold hydrochlorothiazide and losartan. Hold amlodipine for systolic blood pressure less than 120. IV iron 3 doses. First dose today. Repeat electrolytes in the morning.
[2019-01-23] MEDS ORDERED: SODIUM FERRIC GLUCONAT-SUCROSE 125 MG in SODIUM CHLORIDE 0.9% 100 ML IVPB SCH (10:30)
[2019-01-23] MEDS ORDERED: LIDOCAINE 1% INJ 10MG/ML (20 ML MDV) ONE (13:47)
[2019-01-23] MEDS ORDERED: PROPOFOL 10 MG/ML 20 ML VIAL IV ONE (13:47)
[2019-01-23] MEDS ORDERED: IV FLUID CONTINUATION 1,000 ML IV ONE (13:48)
--- NOTE | 2019-01-23 14:19 | P.PCN ---
Date of Procedure: 01/23/19 Procedure(s) Performed: Brief history: Patient is a pleasant 73-year-old white male, scheduled for an elective upper endoscopy as well as colonoscopy as a part of evaluation of iron deficiency anemia. He denies any GI symptoms. His been taking Advil for arthritis for the last 1 year duration. Procedure performed: Esophagogastroduodenoscopy with biopsy Colonoscopy Preoperative diagnosis: Iron deficiency anemia Anesthesia: MAC Procedure: After informed consent was obtained from the patient was brought into the endoscopy unit and IV sedation was administered by anesthesia under continuous monitoring. Initially upper endoscopy was done. The Olympus GF 160 video endoscope was inserted inserted into the mouth and esophagus intubated without any difficulty and was gradually advanced into the stomach and duodenum and carefully examined. The bulb and second part of the duodenum appeared normal. The scope was then withdrawn into the stomach adequately insufflated with air and upon careful examination the antrum had multiple scattered erosions consistent with NSAID-induced gastritis and biopsies were done from this area. The body, cardia and fundus appeared normal. The scope was then withdrawn into the esophagus. There was a moderate size hiatal hernia noted. The GE junction was located at 37 cm to the incisors. Multiple Franco erosions noted at the diaphragmatic hiatus. The GE junction appeared regular with no erythema erosions or ulcerations. Rest of the esophagus appeared normal. Patient tolerated the procedure well. At this time the patient continued to remain sedation. Initial digital rectal examination was normal. Olympus CF 160 video colonoscope was then inserted into the rectum and gradually advanced to the sigmoid colon and further advancement was not possible because of acute relation this area. Scope was removed and a pediatric colonoscopy was then introduced into the rectum and gradually advanced into the cecum without any difficulty. Careful examination was performed as the scope was gradually being withdrawn. The prep was excellent. The cecum, ascending colon, transverse colon, descending colon, sigmoid colon and rectum appeared normal. Retroflexion was performed in the rectum and no lesions were noted. Patient tolerated the procedure well. Impression: 1. Upper endoscopy revealed antral erosive gastritis, moderate size hiatal hernia and multiple Franco erosions 2. Colonoscopy revealed scattered sigmoid diverticulosis but no evidence of colorectal neoplasia Recommendations: Findings of this examination were discussed with the patient as well as his family. He was advised to follow with the biopsy results. He will avoid NSAIDs. He'll be started on Protonix 40 mg daily and iron supplements. Monitor CBC on a monthly basis.
[2019-01-23] MEDS: CYANOCOBALAMIN 500 MCG TAB PO SCH (14:49)
[2019-01-23] MEDS: SODIUM CHLORIDE 0.9% 1,000 ML IV SCH (14:49)
[2019-01-23] MEDS: ASPIRIN 81 MG PO SCH (14:49)
[2019-01-23] MEDS: amLODIPine 5 MG TAB PO SCH (14:52)
[2019-01-23 16:17] LABS: Protein, Total 5.6 g/dL (6.2-8.2)
[2019-01-23 17:10] VITALS: RESP 16
[2019-01-23] MEDS: FERROUS SULFATE 325 MG TAB PO SCH (19:04)
[2019-01-24 05:40] VITALS: BP 117/69; PULSE 70; TEMP 98.4
[2019-01-24 06:48] LABS: Anisocytosis Slight; Basophils % (A) 0 %; Eosinophils # (A) 0.3 k/uL (0-0.7); Eosinophils % (A) 5 %; HCT 26.5 % (39.0-53.0); HGB 7.6 gm/dL (13.0-17.5); Hypochromasia Marked; Lymphocytes # (A) 1.2 k/uL (1.0-4.8); Lymphocytes % (A) 22 %; MCHC 28.6 g/dL (31.0-37.0); MCV 69.7 fL (80.0-100.0); Mean Platelet Volume 6.3; Microcytosis Marked; Monocytes # (A) 0.5 k/uL (0-1.0); Monocytes % (A) 9 %; Neutrophils # (A) 3.2 k/uL (1.3-7.7); Neutrophils % (A) 59 %; Platelet Count 218 k/uL (150-450); Poikilocytosis Moderate; RDW 19.5 % (11.5-15.5); WBC 5.4 k/uL (3.8-10.6)
[2019-01-24 07:02] LABS: Calcium 9.3 mg/dL (8.4-10.2); Magnesium 1.9 mg/dL (1.6-2.3); Potassium 4.6 mmol/L (3.5-5.1)
--- NOTE | 2019-01-24 09:22 | P.PN ---
Subjective Patient is seen in follow-up for acute kidney injury. Renal function is stable. Creatinine 1.25 today. No active bleeding. Status post EGD and colonoscopy yesterday. Urine output has been good. Eager to go home. Vital signs are stable. General: The patient appeared well nourished and normally developed. HEENT: Head exam is unremarkable. Neck is without jugular venous distension. LUNGS: Lungs are clear to auscultation and percussion. Breath sounds decreased. HEART: Rate and Rhythm are regular. First and second heart sounds normal. No m urmurs, rubs or gallops. ABDOMEN: Abdominal exam reveals normal bowel sounds. Non-tender and non-di stended. No evidence of peritonitis. EXTREMITITES: No clubbing, cyanosis, or edema. Objective - Vital Signs Vital signs: Vital Signs Temp 98.4 F 01/24/19 05:00 Pulse 70 01/24/19 05:00 Resp 16 01/24/19 05:00 BP 117/69 01/24/19 05:00 Pulse Ox 97 01/24/19 05:00 Intake & Output 01/23/19 01/24/19 01/24/19 18:59 06:59 18:59 Intake Total 950 1280 Balance 950 1280 Intake: IV 200 Intake, IV Titration 650 80 Amount Lactated Ringers 1,000 ml 650 80 @ 20 mls/hr IV .Q24H FIGUEROA Rx#:[id number] Oral 100 1200 Other: Voiding Method Toilet Toilet # Voids 2 3 - Labs CBC & Chem 7: 01/24/19 05:45 01/24/19 05:45 Labs: Abnormal Lab Results - Last 24 Hours (Table) 01/21/19 01/23/19 01/24/19 Range/Units 15:43 08:21 05:45 RBC 3.80 L (4.30-5.90) m/uL Hgb 7.6 L (13.0-17.5) gm/dL Hct 26.5 L (39.0-53.0) % MCV 69.7 L (80.0-100.0) fL MCH 20.0 L (25.0-35.0) pg MCHC 28.6 L (31.0-37.0) g/dL RDW 19.5 H (11.5-15.5) % Chloride (98-107) mmol/L Erythropoietin 250.89 H (2.00-30.00) mIU/mL Total Protein (PEP) 5.6 L (6.2-8.2) g/dL 01/24/19 Range/Units 05:45 RBC (4.30-5.90) m/uL Hgb (13.0-17.5) gm/dL Hct (39.0-53.0) % MCV (80.0-100.0) fL MCH (25.0-35.0) pg MCHC (31.0-37.0) g/dL RDW (11.5-15.5) % Chloride 108 H (98-107) mmol/L Erythropoietin (2.00-30.00) mIU/mL Total Protein (PEP) (6.2-8.2) g/dL Assessment and Plan Plan: Assessment: 1. Acute kidney injury mostly prerenal secondary to acute blood loss anemia and further worsened with the use of hydrochlorothiazide and losartan. Creatinine was 1.75 on admission and is stable at 1.25 today. No evidence of urinary retention. UA is benign. 2. Acute blood loss anemia. Status post blood transfusion. EGD and colonoscopy this admission revealed erosive gastritis and sigmoid diverticulosis.. Severe iron deficiency noted. 3. Benign hypertension. Blood pressure on the lower side this morning. Plan: Hep-Lock IV fluids. Avoid nephrotoxins, arabella NSAIDs in setting of GIB. Continue to hold hydrochlorothiazide and losartan. Hold amlodipine for systolic blood pressure less than 120. IV iron 3 doses. Second dose today. Anticipate discharge soon. Follow up outpatient in the next 2-3 weeks.
[2019-01-24] MEDS: amLODIPine 5 MG TAB PO SCH (09:27)
[2019-01-24] MEDS: ASPIRIN 81 MG PO SCH (09:27)
[2019-01-24] MEDS: PANTOPRAZOLE 40 MG/10 ML VIAL IV SCH (09:27)
[2019-01-24] MEDS: FERROUS SULFATE 325 MG TAB PO SCH (09:27)
[2019-01-24] MEDS: METOPROLOL SUCCINATE (ER) 25 MG TAB.ER.24H PO SCH (09:28)
[2019-01-24] MEDS: CYANOCOBALAMIN 500 MCG TAB PO SCH (09:28)
--- NOTE | 2019-01-24 11:20 | PN ---
PROGRESS NOTE DATE OF SERVICE: 01/24/2019 Patient is a 73-year-old white male admitted to hospital with severe symptomatic anemia, requiring EGD, colonoscopy that was done yesterday. Upper endoscopy revealed a moderate-sized hiatal hernia with Franco erosions and antral erosive gastritis. Colonoscopy revealed diverticulosis. Patient is on Protonix 40 mg daily. He denies any complaints today. PHYSICAL EXAMINATION: He appears comfortable, in no apparent distress. Vital signs are stable. Blood pressure is 111/69, pulse is 70, temperature 98.4. HEENT: Examination unremarkable. Conjunctivae are pink. Sclerae nonicteric. Oral cavity no lesions. NECK: No JVD or lymph node enlargement. CHEST: Clear to auscultation. HEART: Regular rate and rhythm. ABDOMEN: Soft. Bowel sounds are positive. No organomegaly. EXTREMITIES: No pedal edema. SKIN: No rashes. NEURO: Alert and oriented x3. No focal deficits. LABS: WBC 5.4, hemoglobin 7.6, platelets are 218. Basic metabolic panel is within normal limits. IMPRESSION: 1. Microcytic hypochromic anemia secondary to iron deficiency from upper gastrointestinal bleed, status post EGD and colonoscopy yesterday that revealed moderate-size hiatal hernia with Franco erosions and antral erosive gastritis. 2. Colonoscopy showed diverticulosis. Patient doing well and asymptomatic. RECOMMENDATIONS: 1. Iron supplements twice daily. 2. Protonix 40 mg daily. 3. Avoid NSAIDs. 4. He can be discharged home with outpatient followup as needed. Thank you for this consultation. MMODL / IJN: [id number] /
--- NOTE | 2019-01-24 11:23 | P.DS ---
Providers Date of admission: 01/22/19 13:48 Attending physician: Gina Wagoner Consults: 01/21/19 17:10 Consult Physician Urgent Consulting Provider: Brad Diaz Consult Reason/Comments: Anemia Do you want consulting provider notified?: Yes Consult Physician Urgent Consulting Provider: Lolly Mcclain Consult Reason/Comments: Anemia Do you want consulting provider notified?: Yes 01/22/19 07:20 Consult Physician Urgent Consulting Provider: Jose Baxter Consult Reason/Comments: renal failure Do you want consulting provider notified?: Yes [facility]: 73 years [facility] male with past medical history of lymphoma of the left ear, hypertension who presents because of her low hemoglobin sent by his primary care physician to the emergency room as his hemoglobin was 6.5 with BUN 43 and creatinine 1.4 as per documentation. Patient went to see his PCP Dr. Burroughs because was feeling fatigue with decreased libido and generalized weakness for 2-3 months and eventually his competent to see his PCP Y found to be severely anemic with high creatinine and he was referred to the hospital. 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 He denies chest pain or dyspnea. No abdominal pain. No nausea vomiting. No change in urine or bowel habits. No fever. Vitas looks stable, with low normal blood pressure irrigated this morning at 99/62. Labs showing hemoglobin of 7.2, and creatinine of 1.7. EKG showing sinus rhythm at 80 BPM with no significant ST-T changes, sinus arrhythmia and PVCs with QTC of 396. Chest x-ray: No acute process, Hiatal hernia. On admission patient was started on a Protonix and normal saline at 100 mL per hour. GI and hematology team were consulted from emergency room. 01/23/2019 Patient feels better with weakness is improving. Vitas looks stable. His hemoglobin went up to 7.7 post blood transfusion. Risks of CBC is unremarkable. Iron study showing anemia of chronic disease, B12 is low-normal under going to replace it, folate 22.2. Patient is planned for DVT/colonoscopy today. 01/24/2019 Patient has erosive antral gastritis, will be discharged on Protonix for a month . PHYSICAL EXAMINATION: GENERAL: The patient is alert and oriented x3, not in any acute distress. Well developed, well nourished. HEENT: Pupils are round and equally reacting to light. EOMI. No scleral icterus. No conjunctival pallor. Normocephalic, atraumatic. No pharyngeal erythema. No thyromegaly. CARDIOVASCULAR: S1 and S2 present. No murmurs, rubs, or gallops. PULMONARY: Chest is clear to auscultation, no wheezing or crackles. ABDOMEN: Soft, nontender, nondistended, normoactive bowel sounds. No palpable organomegaly. MUSCULOSKELETAL: No joint swelling or deformity. EXTREMITIES: No cyanosis, clubbing, or pedal edema. NEUROLOGICAL: Gross neurological examination did not reveal any focal deficits. SKIN: No rashes. Possible chronic medical problems and hospitalization course please refer to dictation from Dr. dickson from yesterday Patient Condition at Discharge: Good Plan - Discharge Summary Discharge Rx Participant: No New Discharge Prescriptions: New Pantoprazole Sodium [Protonix] 40 mg PO DAILY #30 tablet. Cyanocobalamin [Vitamin B-12] 500 mcg PO DAILY #30 tab Ferrous Sulfate [Iron (65 MG Elemental)] 325 mg PO BID-W/MEALS #60 tab Continue Multivitamins, Thera [Multivitamin (formulary)] 1 tab PO DAILY Metoprolol Succinate [Toprol XL] 25 mg PO DAILY Flaxseed Oil 1200mg 1 cap PO DAILY Fish Oil/Dha/Epa [Fish Oil 1,200 mg Fish Oil] 1 cap PO DAILY Aspirin EC [Ecotrin Low Dose] 81 mg PO DAILY Acetaminophen [Tylenol Arthritis] 650 mg PO Q6H PRN PRN Reason: Pain Changed amLODIPine [Norvasc] 2.5 mg PO DAILY #0 Discontinued Losartan Potassium 100 mg PO DAILY Hydrochlorothiazide 25 mg PO DAILY Discharge Medication List Acetaminophen [Tylenol Arthritis] 650 mg PO Q6H PRN 01/21/19 [History] Aspirin EC [Ecotrin Low Dose] 81 mg PO DAILY 01/21/19 [History] Fish Oil/Dha/Epa [Fish Oil 1,200 mg Fish Oil] 1 cap PO DAILY 01/21/19 [History] Flaxseed Oil 1200mg 1 cap PO DAILY 01/21/19 [History] Metoprolol Succinate [Toprol XL] 25 mg PO DAILY 01/21/19 [History] Multivitamins, Thera [Multivitamin (formulary)] 1 tab PO DAILY 01/21/19 [History] Cyanocobalamin [Vitamin B-12] 500 mcg PO DAILY #30 tab 01/23/19 [Rx] Ferrous Sulfate [Iron (65 MG Elemental)] 325 mg PO BID-W/MEALS #60 tab 01/23/19 [Rx] Pantoprazole Sodium [Protonix] 40 mg PO DAILY #30 tablet.dr 01/23/19 [Rx] amLODIPine [Norvasc] 2.5 mg PO DAILY #0 01/24/19 [Rx] Follow up Appointment(s)/Referral(s): Ramos Meza III, MD [Primary Care Provider] - 01/26/19 1:00 pm Lolly Mcclain MD [STAFF PHYSICIAN] - 02/09/19 2:00 pm Discharge Disposition: HOME SELF-CARE
[2019-01-24 11:47] LABS: Free Kappa Lt Chain Qnt, Serum 1.25 mg/dL (0.33-1.94)
[2019-01-26 13:12] LABS: Albumin 3.55 g/dL (3.80-4.90); Gamma Globulin 0.55 g/dL (0.70-1.50)
== END 2019-01-24 10:03 | disposition home or self-care (01) | DRG 378 ==
LOC: EC 15:13 → 3NMEDONC 17:10 → OBSVTOIN 01-22 13:48 → 3NMEDONC 01-22 16:39
PROVIDERS: ADMIT Hospitalist; ATTEND Hospitalist
PROC: 30233N1 Transfusion of Nonautologous Red Blood Cells into Peripheral Vein, Percutaneous Approach (ICD-10-PCS; 2019-01-22)
PROC: 0DJD8ZZ Inspection of Lower Intestinal Tract, Via Natural or Artificial Opening Endoscopic (ICD-10-PCS; principal; 2019-01-23 07:30)
PROC: 0DB78ZX Excision of Stomach, Pylorus, Via Natural or Artificial Opening Endoscopic, Diagnostic (ICD-10-PCS; principal; 2019-01-23 07:30)
DX: K29.01 Acute gastritis with bleeding (principal); D62 Acute posthemorrhagic anemia; N17.9 Acute kidney failure, unspecified; D63.8 Anemia in other chronic diseases classified elsewhere; I10 Essential (primary) hypertension; K44.9 Diaphragmatic hernia without obstruction or gangrene; K57.30 Diverticulosis of large intestine without perforation or abscess without bleeding; M19.90 Unspecified osteoarthritis, unspecified site; Z79.82 Long term (current) use of aspirin; Z79.899 Other long term (current) drug therapy; Z82.49 Family history of ischemic heart disease and other diseases of the circulatory system; Z85.72 Personal history of non-Hodgkin lymphomas; Z87.891 Personal history of nicotine dependence
CPT/HCPCS: 36415; 43239; 45378; 71046; 80048; 80053; 81003; 82272; 82550; 82607; 82668; 82728; 82746; 83540; 83550; 83735; 83883; 83921; 84165; 84484; 85025; 85045; 85610; 85730; 86334; 86850; 86900; 86901; 86920; 88305; 93005; 96361; 96374; 99285

== ENCOUNTER → 2020-08-10 | Outpatient (CLI) | payer BC, MEDICARE ==
--- NOTE | 2020-08-10 21:06 | CONS ---
CONSULTATION DATE OF SERVICE: 08/10/2020 74-year-old gentleman who has been evaluated in Sleep Center for possible obstructive sleep apnea-hypopnea syndrome. HISTORY OF PRESENT ILLNESS/SLEEP WAKE EVALUATION: SLEEP SCHEDULE: Patient's usual sleep schedule from 9 p.m. to 6 a.m. on weekdays and from 9 p.m. to 7:30 a.m. FALLING ASLEEP: No problems with falling asleep, although patient has TV set in bedroom. DURING SLEEP: He sleeps on the stomach position with loud snoring according to his and possible episodes of stopped breathing during sleep. He wakes up from sleep times new nocturia. No history of hypnagogic hallucinations, sleep paralysis or cataplexy. [place] Sleepiness Scale is 0. DURING THE DAY/SLEEP WAKE EVALUATION: The patient does not take any naps. No history of hypnagogic hallucinations, sleep paralysis or cataplexy. PAST MEDICAL HISTORY: Positive for cardiac arrhythmia, hypertension, iron deficiency anemia. PAST SURGICAL HISTORY: Carotid endarterectomy on the left side. Meniscus surgery on the right side. MEDICATIONS: Pantoprazole 40 mg once a day, metoprolol 25 mg once a day, Losartan 100 mg once a day, amlodipine 5 mg once a day, hydrochlorothiazide 25 mg once a day. Ferrous sulfate 325 mg once a day, vitamins, fish oil, flaxseed supplements. FAMILY HISTORY: Heart problems. REVIEW OF SYSTEMS: Snoring, multiple awakenings from sleep. PHYSICAL EXAMINATION: GENERAL: gentleman without distress. BP 145/88, HR 73, RR 15, height 5 feet 5 inches, weight 158.8, temperature 97.0, oxygen saturation at room air 98%. BMI 30.3. HEENT: PERRLA, EOMI. Evaluation of oropharynx showed tongue protrudes midline. Extremely low position of soft palate. Mallampati 4. Neck 15 inches in circumference. Neck: Supple, no JVD. Thyroid is not palpable. LUNGS: Clear to percussion and to auscultation. Good air exchange. No wheezing or rhonchi. HEART: S1, S2 regular. No murmurs, gallops, or rubs. ABDOMEN: Soft and nontender. Bowel sounds are present. No organomegaly appreciated. EXTREMITIES: No clubbing or cyanosis. DEMONSTRATOR SALES: Awake, alert, and oriented X3. Cranial nerves 2 to 7 intact. There is no fasciculation or atrophy. noted. No focal deficits observed. IMPRESSION: 1. Loud snoring, multiple awakenings from sleep with nocturia. Extremely low position of soft palate. Mallampati 4. Obstructive sleep apnea-hypopnea syndrome. 2. Mild obesity BMI 30.3. 3. History of cardiac arrhythmia with cardiac pauses according to patient. 4. Hypertension. 5. History of iron deficiency anemia, shock secondary to lower gastrointestinal bleed. 6. Status post carotid endarterectomy on the left side. 7. Status post right knee meniscus surgery. PLAN: 1. Home sleep apnea test for checking breathing during the sleep. 2. CPAP/BiPAP titration if sleep study confirms obstructive sleep apnea-hypopnea syndrome. 3. Preferable position during sleep on the side. 4. No driving if patient feels any sleepiness. 5. I will see patient for follow up visit to explain results of testing and following plan. Peter Roa MD, PhD, FAASM Diplomat of [place] [employer] [place] [employer] Plant Chief of [facility] [place] MMODL / IJN: [id number] /
== END ==
LOC: SLEEP 14:29
PROVIDERS: ATTEND Internal Medicine Critical Care Medicine
DX: G47.33 Obstructive sleep apnea (adult) (pediatric) (principal); R35.1 Nocturia; E66.9 Obesity, unspecified; D50.9 Iron deficiency anemia, unspecified; I10 Essential (primary) hypertension; R57.9 Shock, unspecified; Z98.890 Other specified postprocedural states; Z98.62 Peripheral vascular angioplasty status; Z79.899 Other long term (current) drug therapy; Z68.30 Body mass index [BMI] 30.0-30.9, adult; Z86.79 Personal history of other diseases of the circulatory system; Z87.891 Personal history of nicotine dependence
CPT/HCPCS: 99211

== ENCOUNTER 2020-09-22 11:40 | Day surgery (SDC) | payer MEDICARE ==
[2020-09-20 16:06] VITALS: BMI 23.1
[~2020-09-22 11:40] MED LIST: ceFAZolin 1 GM in SODIUM CHLORIDE 0.9% 250 ML IRRIGATION PRN
[2020-09-22] MEDS ORDERED: SODIUM CHLORIDE 0.9% 500 ML 500 ML IV ONE (12:18)
[2020-09-22 12:22] LABS: Basophils % (A) 0 %; Eosinophils # (A) 0.2 k/uL (0-0.7); Eosinophils % (A) 1 %; HCT 44.8 % (39.0-53.0); HGB 14.5 gm/dL (13.0-17.5); Lymphocytes % (A) 9 %; MCH 30.5 pg (25.0-35.0); MCHC 32.3 g/dL (31.0-37.0); MCV 94.3 fL (80.0-100.0); Mean Platelet Volume 8.2; Monocytes # (A) 0.6 k/uL (0-1.0); Monocytes % (A) 6 %; Neutrophils # (A) 9.3 k/uL (1.3-7.7); Neutrophils % (A) 82 %; Platelet Count 278 k/uL (150-450); RBC 4.75 m/uL (4.30-5.90); RDW 13.3 % (11.5-15.5); WBC 11.3 k/uL (3.8-10.6)
[2020-09-22 12:41] LABS: African American GFR (CKD) >90 (>60 ml/min/1.73 sqM); Anion Gap 9 mmol/L; Blood Urea Nitrogen 27 mg/dL (9-20); Calcium 9.9 mg/dL (8.4-10.2); Carbon Dioxide 23 mmol/L (22-30); Chloride 101 mmol/L (98-107); Glucose 103 mg/dL (74-99); Non-African American GFR(CKD) 85 (>60 ml/min/1.73 sqM); Sodium 133 mmol/L (137-145)
[2020-09-22 12:52] LABS: Potassium 4.2 mmol/L (3.5-5.1)
[2020-09-22] MEDS ORDERED: LIDOCAINE 1% INJ 10MG/ML (20 ML MDV) ONE ×2 (18:05)
[2020-09-22] MEDS ORDERED: IOPAMIDOL-250 50ML BTL IV ONE (18:21)
[2020-09-22] MEDS ORDERED: fentaNYL (PF) 50 MCG/ML 2 ML AMP ONE (18:23)
[2020-09-22] MEDS ORDERED: MIDAZOLAM 2 MG/2 ML VIAL IV ONE ×2 (18:28→18:52)
[2020-09-22] MEDS: MIDAZOLAM 2 MG/2 ML VIAL IV ONE ×2 (18:28→18:36)
[2020-09-22] MEDS: fentaNYL (PF) 50 MCG/ML 2 ML AMP IV ONE ×2 (18:34→18:40)
[2020-09-22] MEDS ORDERED: LIDOCAINE 1% INJ 10MG/ML (20 ML MDV) SQ ONE ×3 (18:42→19:05)
[2020-09-22] MEDS ORDERED: SODIUM CHLORIDE 0.9% 250 ML IV ONE (19:00)
[2020-09-22] MEDS ORDERED: ACETAMINOPHEN IV (For NPO) 1,000 MG in EMPTY BAG 1 BAG IVPB ONE (19:47)
[2020-09-22] MEDS ORDERED: ACETAMINOPHEN TAB 325 MG TAB PO PRN (19:47)
--- NOTE | 2020-09-22 20:07 | P.EPPROC ---
- EP Procedure Note Electrophysiology Procedure Note: Left upper extremity venogram 10 mL IV dye injected in the left arm Patent left axillary and left subclavian venous system Plan Proceed with dual-chamber pacemaker implantation
[2020-09-22] MEDS: SODIUM CHLORIDE 0.9% 1,000 ML IV SCH ×2 (20:21)
--- NOTE | 2020-09-22 20:37 | PCN ---
PROCEDURE NOTE Mr. Armstrong is a 74-year-old male patient who has paroxysmal AV block with pauses up to 11 seconds. He was brought in for dual-chamber pacemaker implantation. He also has a history of paroxysmal atrial fibrillation. Patient was brought to the EP lab in a fasting state. Written informed consent was obtained prior to the procedure. The left shoulder area was prepped and draped as per protocol. 1% lidocaine was used for local anesthesia. A 4 cm incision was made parallel to the deltopectoral groove, about 1.5 cm medial to it. The incision was carried down to the level of the pectoralis muscle. A subfascial pocket was made. Hemostasis was assured. The left axillary vein was accessed at 2 separate points under fluoroscopy and via appropriately-sized introducer sheaths 2 leads were positioned in the right heart. The atrial lead was a Medtronic model #5076, 45 cm length and serial number [id number]. This was screwed in the right atrial appendage. P waves were 2 mV, pacing impedance 665 ohms, pacing threshold 1 V at 0.4 milliseconds 10 V test negative. The RV lead was a Medtronic model #5076, 58 cm in length and serial number [id number], R-waves 4 mV, pacing impedance 836 ohms, pacing threshold 0.75 V, at 0.4 milliseconds. 10 V test negative. Both leads were secured to the underlying pectoralis fascia using 2 nonabsorbable sutures. The pocket was irrigated with antibiotic solution. Leads were connected to the generator (Medtronic model number W1DR01 serial number [id number], Debbie XT DDR MRI) the leads and generator were then placed in a subfascial pocket. The wound was closed in 3 layers and dressed per protocol. RESULTS: Successful dual-chamber pacemaker implantation for paroxysmal AV block. MMODL / IJN: [id number] /
--- NOTE | 2020-09-22 21:02 | XR ---
EXAMINATION: XR chest 1V portable DATE AND TIME: 09/22/2020 8:55 PM CLINICAL INDICATION: PHH; Lead placement check TECHNIQUE: AP portable upright COMPARISON: 01/21/2019 FINDINGS: Interval placement of a left subclavian dual-lead pacemaker. The pleural spaces are negative. The lungs are clear. The cardiac silhouette is mildly enlarged. Prominent hiatal hernia redemonstrated. The skeletal structures and soft tissues are negative for acute findings. IMPRESSION: NO ACUTE PROCESS.
[2020-09-22 23:46] VITALS: RESP 16
[2020-09-23] MEDS: SODIUM CHLORIDE 0.9% 1,000 ML IV SCH ×3 (03:40→08:45)
[2020-09-23] MEDS ORDERED: PANTOPRAZOLE 40 MG TABLET PO SCH (07:30)
[2020-09-23 08:10] VITALS: BP 136/88; PULSE 77; TEMP 97.6
[2020-09-23] MEDS ORDERED: amLODIPine 5 MG TAB PO SCH (09:00)
[2020-09-23] MEDS ORDERED: ASPIRIN 81 MG PO SCH (09:00)
--- NOTE | 2020-09-25 07:21 | P.DS ---
Providers Attending physician: Max Torres Primary care physician: Ramos [facility] Course: Patient is resting comfortably in bed. No chest discomfort no dizziness lightheadedness. Minimal soakage in the pacemaker dressing No dizziness no lightheadedness On examination afebrile 97.6F, blood pressure 136/88. His mercury Normal heart sounds Normal breath sounds no rhonchi no crackles No JVD No swelling over the pacemaker site Impression Paroxysmal AV block Paroxysmal episodes of atrial fibrillation Hypertension Status post dual-chamber pacemaker implant Plan Chest x-ray does not show any pneumothorax If the device interrogation is within normal limits in be discharged home today Start ELIQUIS 5 g twice daily after [address] Lizarraga and device clinic Patient Condition at Discharge: Stable Plan - Discharge Summary Discharge Rx Participant: No New Discharge Prescriptions: New Apixaban [Eliquis] 5 mg PO BID #180 tab Continue RX: Multivitamins, Thera [Multivitamin (formulary)] 1 tab PO DAILY Flaxseed Oil 1200mg 1 cap PO DAILY RX: Fish Oil/Dha/Epa [Fish Oil 1,200 mg Fish Oil] 1 cap PO DAILY RX: Aspirin EC [Ecotrin Low Dose] 81 mg PO DAILY RX: Acetaminophen [Tylenol Arthritis] 650 mg PO Q6H PRN PRN Reason: Pain RX: Pantoprazole Sodium [Protonix] 40 mg PO DAILY #30 tablet. RX: Cyanocobalamin [Vitamin B-12] 500 mcg PO DAILY #30 tab RX: Ferrous Sulfate [Iron (65 MG Elemental)] 325 mg PO BID-W/MEALS #60 tab RX: amLODIPine [Norvasc] 5 mg PO DAILY Discharge Medication List Flaxseed Oil 1200mg 1 cap PO DAILY 01/21/19 [History] RX: Acetaminophen [Tylenol Arthritis] 650 mg PO Q6H PRN 01/21/19 [History] RX: Aspirin EC [Ecotrin Low Dose] 81 mg PO DAILY 01/21/19 [History] RX: Fish Oil/Dha/Epa [Fish Oil 1,200 mg Fish Oil] 1 cap PO DAILY 01/21/19 [History] RX: Multivitamins, Thera [Multivitamin (formulary)] 1 tab PO DAILY 01/21/19 [History] RX: Cyanocobalamin [Vitamin B-12] 500 mcg PO DAILY #30 tab 01/23/19 [Rx] RX: Ferrous Sulfate [Iron (65 MG Elemental)] 325 mg PO BID-W/MEALS #60 tab 01/23/19 [Rx] RX: Pantoprazole Sodium [Protonix] 40 mg PO DAILY #30 tablet. 01/23/19 [Rx] RX: amLODIPine [Norvasc] 5 mg PO DAILY 09/20/20 [History] Apixaban [Eliquis] 5 mg PO BID #180 tab 09/22/20 [Rx] Follow up Appointment(s)/Referral(s): Jolynn Lizarraga MD [STAFF PHYSICIAN] - 1 Week (Device clinic follow-up in one week) Activity/Diet/Wound Care/Special Instructions: PLEASE CALL AND MAKE AN APPOINTMENT WITH CARDIOLOGY FOR FOLLOW UP WITHIN ONE WEEK. START THE ELIQUIS TOMORROW Saturday09/24/2020 PATIENT EDUCATION MATERIAL Instructions following a heart rhythm device implant. 1. Keep dressing DRY for 5 DAYS. You may cover the area with Saran or Cling Wrap, prior to a shower. 2. The dressing will be removed in the Device Clinic at [facility]. Absorbable sutures were used to close the wound. 3. Avoid raising the left arm above the shoulder level. 4 week restriction 4. Avoid arm movements, like backscratching, rubbing the head, or pulling on a cord. 4 weeks restriction 5. Gentle range of motion movements of the shoulder, closest to the incision should be performed to avoid a frozen shoulder. (Pendulum exercises of the shoulder) 6. The opposite arm may be used freely. 7. Avoid driving for 7 days. 8. Avoid activities such as golfing, swimming, weed whacking, lifting more than 10 pounds weight, bowling, gymnastics and weight training/lifting. (6 weeks restriction) 9. Activities such as wood chopping with an axe, pull-ups in the gymnasium, power lifting, arc-welding, being close to home induction cooktops will always be a problem. 10. Arm sling is only a reminder not to raise the arm above the head. You do not need to keep the arm completely immobilized. Your free to move the arm and use it and for normal activities. In case of any problems, please call [facility] [place], @ [phone], Attention: Device Clinic Device clinic follow-up in 5 days Follow-up with primary vice president in 2-3 months Discharge Disposition: HOME SELF-CARE
--- NOTE | 2020-09-25 07:23 | P.PRLE ---
RE: Pete Armstrong Dear Jonh Patient underwent dual-chamber pacemaker implantation for paroxysmal AV block with a long pauses Atrial flutter with procedure well without any acute complications He also has a history of paroxysmal atrial fibrillation and ELIQUIS is being initiated in the next 24 hours He will continue to follow with you and Dr. Lizarraga as before Thank you for entrusting me with the care of the patient Warm regards Sincerely Max Torres
== END 2020-09-23 14:05 | disposition home or self-care (01) ==
LOC: CATHEP 11:40 → 6NMEDSUR 18:31 → CATHEP 09-23 14:05
PROVIDERS: ATTEND Internal Medicine Clinical Cardiac Electrophysiology
DX: I44.30 Unspecified atrioventricular block (principal); I10 Essential (primary) hypertension; Z82.49 Family history of ischemic heart disease and other diseases of the circulatory system; I08.3 Combined rheumatic disorders of mitral, aortic and tricuspid valves; I65.23 Occlusion and stenosis of bilateral carotid arteries; I49.3 Ventricular premature depolarization; Z79.82 Long term (current) use of aspirin; Z79.899 Other long term (current) drug therapy
CPT/HCPCS: 33208; 80048; 85025; 71045; C1769 ×3; C1892; C1898; C1785; J2250; J0690 ×2; J2001; J3010; J0131; Q9966

== ENCOUNTER → 2020-10-13 | Outpatient (CLI) | payer MEDICARE ==
--- NOTE | 2020-10-14 12:38 | SFUN ---
SLEEP CENTER FOLLOW UP NOTE DATE OF SERVICE: 10/13/2020 This 75-year-old gentleman has been followed in Sleep Center for treatment of obstructive sleep apnea-hypopnea syndrome. Recently the patient had a home sleep apnea test which showed that he has severe sleep apnea, and I discussed results of the sleep study with him and his in detail. The patient was started on treatment with CPAP. Today is his first visit after he started treatment with CPAP equipment. He sleeps well with the machine. He is using it every night. No snoring with the machine, according to his . I checked his CPAP unit. Range of the pressure is 5-15, average pressure 8.6 cm of water. Usage is 29/30 nights, average usage 8.6 hours per night. Leak is 35 L/minute, which is high, but apnea-hypopnea index is 2.6, which is totally perfect. MEDICATIONS: 1. Pantoprazole 40 mg once a day. 2. Metoprolol 25 mg once a day. 3. Losartan 100 mg once a day. 4. Amlodipine 5 mg once a day. 5. Hydrochlorothiazide 25 mg once a day. 6. Eliquis twice a day. PHYSICAL EXAMINATION: GENERAL: A pleasant patient in no distress. VITAL SIGNS: BP 143/82, HR 70, RR 15, weight 159 pounds. HEENT: PERRLA, EOMI, evaluation of oropharynx showed tongue protrudes midline. Low position of soft palate. Mallampati 4. NECK: Supple, no JVD. Thyroid is not palpable. LUNGS: Clear to percussion and to auscultation. Good air exchange. No wheezing or rhonchi. HEART: S1, S2 regular. No murmurs, gallops, or rubs. ABDOMEN: Soft and nontender. Bowel sounds are present. No organomegaly appreciated. EXTREMITIES: No clubbing or cyanosis. COMPUTER SYSTEMS AUDITOR: Awake, alert, and oriented X3. Cranial nerves 2 to 7 intact. There is no fasciculation or atrophy. noted. No focal deficits observed. IMPRESSION: 1. Extremely severe obstructive sleep apnea-hypopnea syndrome by results of home sleep apnea test. Apnea-hypopnea index 59.2 with oxygen desaturation to 62%. Normal respiration on CPAP. 2. Mild obesity. 3. Hypertension. 4. History of cardiac arrhythmia with cardiac pauses, according to patient. 5. History of iron deficiency anemia. 6. Status post carotid endarterectomy on the left side. 7. Status post right knee meniscus surgery. PLAN: 1. Patient will continue to use PAP equipment every night for the whole night. 2. Sleep hygiene with regular time in bed for at least 7-1/2 to 8 hours. 3. Precautions related to driving. No driving if feeling sleepiness. 4. I will maintain all necessary prescription for PAP supplies including mask, tube, filters. 5. Watching weight. 6. Follow-up visit in 6 months or earlier if patient has any problems. Thank you very much for allowing me to participate in the management of your patient. Sincerely, Peter Roa MD, PhD, FAASM Diplomat of [place] [employer] Sleep Medicine Board of [place] [employer] Customer Account Specialist of [facility] [place] MURRAY / NIVIA: [id number] /
== END ==
LOC: SLEEP 16:25
PROVIDERS: ATTEND Internal Medicine
DX: G47.33 Obstructive sleep apnea (adult) (pediatric) (principal); G47.36 Sleep related hypoventilation in conditions classified elsewhere; E66.9 Obesity, unspecified; I10 Essential (primary) hypertension; Z86.79 Personal history of other diseases of the circulatory system; Z98.890 Other specified postprocedural states; Z99.89 Dependence on other enabling machines and devices; Z79.899 Other long term (current) drug therapy; Z87.891 Personal history of nicotine dependence

== ENCOUNTER → 2022-09-08 | Outpatient (CLI) | payer MEDICARE ==
[2022-09-08 23:37] LABS: ALT 25 U/L (10-49); AST 23 U/L (14-35); Albumin 4.5 d/dL (3.8-4.9); Albumin/Globulin Ratio 2.14 Ratio (1.60-3.17); Alkaline Phosphatase 53 U/L (41-126); BUN/Creat Ratio 21.75 Ratio (12.00-20.00); Blood Urea Nitrogen 26.1 mg/dL (9.0-27.0); Calcium 10.3 mg/dL (8.7-10.3); Carbon Dioxide 28.7 mmol/L (21.6-31.8); Chloride 102 mmol/L (96-109); Chol/HDL Ratio 3.01 Ratio; Globulin 2.1 d/dL (1.6-3.3); Glucose 99 mg/dL (70-110); LDL Cholesterol,Calculated 84.8 mg/dL (0.0-131.0); Potassium 4.5 mmol/L (3.5-5.5); Sodium 142 mmol/L (135-145); Total Bilirubin 0.8 mg/dL (0.3-1.2); Total Protein 6.6 d/dL (6.2-8.2); VLDL Calculation 14.04 mg/dL (5.00-40.00)
== END | disposition home or self-care (01) ==
LOC: LABWHC1 09:48
PROVIDERS: ATTEND Internal Medicine Interventional Cardiology
DX: E78.2 Mixed hyperlipidemia (principal)
CPT/HCPCS: 36415; 80053; 80061

== ENCOUNTER → 2022-11-14 | Outpatient (CLI) | payer MEDICARE ==
--- NOTE | 2022-11-14 14:01 | XR ---
EXAMINATION TYPE: XR shoulder complete RT DATE OF EXAM: 11/14/2022 COMPARISON: NONE HISTORY: Pain TECHNIQUE: Three views are submitted. FINDINGS: The osseous structures are intact. There is no acute fracture or dislocation. Moderate before meals joint hypertrophic arthropathy. Calcification along the humeral head compatible calcific tendinosis. Glenohumeral joint arthropathy. IMPRESSION: 1. Severe glenohumeral joint arthropathy with complete loss of joint space. 2 calcific tendinosis. 3 moderate AC joint arthropathy.
== END | disposition home or self-care (01) ==
LOC: RADXRMAIN 13:41
PROVIDERS: ATTEND Internal Medicine Geriatric Medicine
DX: M19.011 Primary osteoarthritis, right shoulder (principal); M75.31 Calcific tendinitis of right shoulder

== ENCOUNTER → 2023-09-02 | Outpatient (CLI) | payer MEDICARE ==
[2023-09-02 10:34] LABS: ALT 21 U/L (10-49); AST 22 U/L (14-35); Albumin 4.6 g/dL (3.8-4.9); Albumin/Globulin Ratio 2.42 Ratio (1.60-3.17); Alkaline Phosphatase 44 U/L (41-126); BUN/Creat Ratio 21.91 Ratio (12.00-20.00); Blood Urea Nitrogen 24.1 mg/dL (9.0-27.0); Calcium 9.9 mg/dL (8.7-10.3); Carbon Dioxide 26.3 mmol/L (21.6-31.8); Chloride 102 mmol/L (96-109); Chol/HDL Ratio 3.32 Ratio; Globulin 1.9 g/dL (1.6-3.3); Glucose 102 mg/dL (70-110); LDL Cholesterol,Calculated 95.6 mg/dL (0.0-131.0); Potassium 4.4 mmol/L (3.5-5.5); Sodium 140 mmol/L (135-145); Total Bilirubin 0.4 mg/dL (0.3-1.2); Total Protein 6.5 g/dL (6.2-8.2)
== END | disposition home or self-care (01) ==
LOC: LABWHC1 07:09
PROVIDERS: ATTEND Nurse Practitioner Adult Health
DX: I10 Essential (primary) hypertension (principal); E78.2 Mixed hyperlipidemia
CPT/HCPCS: 36415; 80053; 80061

== ENCOUNTER → 2023-11-15 | Outpatient (CLI) | payer MEDICARE ==
[2023-11-15 15:10] LABS: Basophils # (A) 0.02 X 10*3/uL (0.00-0.10); Basophils % (A) 0.3 %; Eosinophils # (A) 0.27 X 10*3/uL (0.04-0.35); Eosinophils % (A) 4.4 %; HCT 48.4 % (39.6-50.0); HGB 16.1 g/dL (13.0-17.0); Lymphocytes # (A) 1.03 X 10*3/uL (0.90-5.00); Lymphocytes % (A) 16.7 %; MCH 31.4 pg (27.0-32.0); MCHC 33.3 g/dL (32.0-37.0); MCV 94.3 FL (80.0-97.0); Mean Platelet Volume 11.3 FL (9.5-12.2); Monocytes # (A) 0.57 X 10*3/uL (0.20-1.00); Monocytes % (A) 9.2 %; NRBC Per 100 WBC 0 X 10*3/uL (0.00-0.01); Neutrophils # (A) 4.26 X 10*3/uL (1.80-7.70); Neutrophils % (A) 69.1 %; Platelet Count 227 X 10*3/uL (140-440); RBC 5.13 X 10*6/uL (4.40-5.60); RDW 13.9 % (11.5-14.5); WBC 6.17 X 10*3/uL (4.50-10.00)
[2023-11-15 15:27] LABS: ALT 25 U/L (10-49); AST 28 U/L (14-35); Albumin 4.7 g/dL (3.8-4.9); Albumin/Globulin Ratio 2.14 Ratio (1.60-3.17); Alkaline Phosphatase 55 U/L (41-126); BUN/Creat Ratio 17.43 Ratio (12.00-20.00); Blood Urea Nitrogen 24.4 mg/dL (9.0-27.0); Calcium 10.6 mg/dL (8.7-10.3); Carbon Dioxide 21.6 mmol/L (21.6-31.8); Chloride 102 mmol/L (96-109); Chol/HDL Ratio 3.17 Ratio; Creatine Kinase 83 U/L (35-257); Globulin 2.2 g/dL (1.6-3.3); Glucose 94 mg/dL (70-110); LDL Cholesterol,Calculated 92.8 mg/dL (0.0-131.0); Potassium 3.9 mmol/L (3.5-5.5); Sodium 139 mmol/L (135-145); Total Protein 6.9 g/dL (6.2-8.2)
== END | disposition home or self-care (01) ==
LOC: LABWHC1 09:34
PROVIDERS: ATTEND Internal Medicine Geriatric Medicine
DX: Z12.5 Encounter for screening for malignant neoplasm of prostate (principal); D50.9 Iron deficiency anemia, unspecified; I48.0 Paroxysmal atrial fibrillation; E78.2 Mixed hyperlipidemia; R79.9 Abnormal finding of blood chemistry, unspecified; N40.0 Benign prostatic hyperplasia without lower urinary tract symptoms
CPT/HCPCS: 36415; 80053; 80061; 82550; 83036; 84443; 85025

== ENCOUNTER → 2024-08-10 | Outpatient (CLI) | payer MEDICARE ==
--- NOTE | 2024-08-10 23:53 | XR ---
EXAMINATION TYPE: XR hand complete RT DATE OF EXAM: 08/10/2024 10:47 AM COMPARISON: None. CLINICAL INDICATION: Male, 78 years old with history of M79.644 PAIN IN RIGHT FINGERS, pain TECHNIQUE: 3 view(s) obtained. FINDINGS: No acute fractures or dislocations. Joint spaces are diffusely narrowed. Soft tissues are normal. Not e is made of spurring at the distal metacarpals. IMPRESSION: 1. Moderate degenerative joint changes throughout the right hand. [facility], , 08/10/2024 11:51 PM
== END | disposition home or self-care (01) ==
LOC: RADXRMAIN 10:01
PROVIDERS: ATTEND Internal Medicine Geriatric Medicine
DX: M19.041 Primary osteoarthritis, right hand (principal)